=== PATIENT | female | born 1960 | race Caucasian/White ===

== ENCOUNTER → 2018-05-04 | Outpatient (CLI) | payer OTHER ==
[~2018-05-04] MED LIST: AMOXICILLIN 50500 MG PO; CALTRATE 600+D1 EACH; CYMBALTA60 MG; METFORMIN HCL1000 MG; METFORMIN HCL500 MG; NORFLEX100 MG PO; PRILOSEC40 MG; VICOPROFEN 2001 EACH PO
== END ==
LOC: M.RAD 16:20
DX: M25.511 Pain in right shoulder (principal); M89.8X1 Other specified disorders of bone, shoulder; E11.9 Type 2 diabetes mellitus without complications; G43.909 Migraine, unspecified, not intractable, without status migrainosus

== ENCOUNTER → 2018-05-10 | Outpatient (CLI) | payer OTHER ==
[2018-05-10 10:35] LABS: CREATININE 0.7 mg/dL (0.6-1.3)
== END ==
LOC: M.LAB 10:00 → M.CT 11:00
PROVIDERS: Family Medicine
DX: R22.2 Localized swelling, mass and lump, trunk (principal); E11.9 Type 2 diabetes mellitus without complications; G43.909 Migraine, unspecified, not intractable, without status migrainosus

== ENCOUNTER → 2018-07-07 | Outpatient (CLI) | payer OTHER | LOC: M.MRI 14:30 | DX: M50.121 Cervical disc disorder at C4-C5 level with radiculopathy (principal); M47.22 Other spondylosis with radiculopathy, cervical region; M48.02 Spinal stenosis, cervical region ==

== ENCOUNTER → 2021-03-24 | Outpatient (CLI) | payer OTHER | LOC: M.RAD 12:45 | PROVIDERS: ATTEND Family Medicine | DX: Z12.31 Encounter for screening mammogram for malignant neoplasm of breast (principal) ==